=== PATIENT | male | born 1990 | race Caucasian/White ===

== ENCOUNTER 2018-04-12 10:26 | Emergency (ER) | payer BC ==
[2018-04-12] MEDS ORDERED: ONDANSETRON 4 MG/2 ML VIAL IVP ONE (11:17)
[2018-04-12] MEDS ORDERED: NS 1,000 ML IV ONE (11:17)
--- NOTE | 2018-04-12 11:17 | EDPHY ---
H & P Stated Complaint: N/D for past week Time Seen by Provider: 04/12/18 11:16 HPI/ROS: HPI: This is a 27-year-old male who presents with Chief Complaint: N/D for past week Location: Abdomen Quality: Nausea, diarrhea Duration: 1 week Signs and Symptoms: no fever,+ nausea, no vomiting, no hematemesis, no blood in stool, no abdominal bloating, + diarrhea, no back pain, no urinary symptoms, no testicular/groin pain, no indigestion, no chest pain, no shortness of breath Timing: Acute Severity: [id number] Context: Patient has a history of ulcerative colitis normally takes Asacol twice daily presents with history of nausea and loose stools over the past 1 week. He recently moved to [place] from [facility] several months ago. He reports that he stopped taking the Asacol approximately 1 month ago. Up to that point he had been taking it consistently. He denies any blood in his stool, fever, abdominal pain, abdominal cramping, urinary symptoms, back pain, hematemesis. He was only hospitalized once since being diagnosed with ulcerative colitis it and that was when he was initially diagnosed. He reports that he is a vegetarian. No recent foreign travel or antibiotic use. Patient does not have a primary care provider or Gastroenterology in the area. Modifying Factors: None Comment: ROS: see HPI Constitutional: No fever, no chills, no weight loss Eyes: No blurred vision Respiratory: No shortness of breath, no cough Cardiovascular: No chest pain, no palpitations Gastrointestinal: + nausea,no vomiting, + diarrhea, no hematemesis, no blood in stool Genitourinary: No dysuria, no blood in urine Extremities: No myalgias, no edema Neurologic: No weakness, no numbness Skin: No rashes, no petechiae Hematologic: No bruising, no bleeding MEDICAL/SURGICAL/SOCIAL HISTORY: Medical history: ulcerative colitis, hypothyroid Surgical history: Denies Social history: Family history noncontributory. CONSTITUTIONAL: Extremely polite and cooperative well-appearing young adult white male, awake and alert, no obvious distress HEENT: Atraumatic and normocephalic, PERRL, EOMI. Nares patent; no rhinorrhea; no nasal mucosal edema. Tympanic membranes clear. Oropharynx clear, no exudate and moist pink mucosa. Airway patent. No lymphadenopathy. No meningismus. Cardiovascular: Normal S1/S2, regular rate, regular rhythm, without murmur rub or gallop. PULMONARY/CHEST: Symmetrical and nontender. Clear to auscultation bilaterally. Good air movement. No accessory muscle usage. ABDOMEN: Soft, nondistended, nontender, no rebound, no guarding, no peritoneal signs, no masses or organomegaly. No CVAT. EXTREMITIES: 2/2 pulses, strength 5/5, no deformities, no clubbing, no cyanosis or edema. NEUROLOGICAL: no focal neuro deficits. GCS 15. SKIN: Warm and dry, no erythema. no rash. Good capillary refill. Source: Patient Exam Limitations: No limitations - Medical/Surgical History Hx Asthma: No Hx Chronic Respiratory Disease: No Hx Diabetes: No Hx Cardiac Disease: No Hx Renal Disease: No Hx Cirrhosis: No Hx Alcoholism: No Hx HIV/AIDS: No Hx Splenectomy or Spleen Trauma: No Other PMH: ulcerative colitis, hypothyroid - Social History Smoking Status: Never smoked Constitutional: Initial Vital Signs Temperature (C) 36.5 C 04/12/18 10:30 Heart Rate 58 L 04/12/18 10:30 Respiratory Rate 18 04/12/18 10:30 Blood Pressure 104/58 L 04/12/18 10:30 O2 Sat (%) 97 04/12/18 10:30 O2 Delivery Mode Room Air Allergies/Adverse Reactions: No Known Allergies Allergy (Unverified 04/12/18 10:29) Home Medications: Medication Instructions Recorded Asacol Hd 04/12/18 Ondansetron Odt [Zofran Odt 4 mg 4 mg PO Q4 PRN #12 tab 04/12/18 (*)] Synthroid 04/12/18 predniSONE [Deltasone] 40 mg PO DAILY 5 Days tablet 04/12/18 Medical Decision Making ED Course/Re-evaluation: Vital signs reviewed and stable upon arrival. No systemic signs. Given 1 L normal saline and IV Zofran. Laboratory studies including occult stool ordered. Abdomen is soft and nontender. Doubt surgical process. Imaging not indicated at this time. 1210: Labs reviewed. No signs of leukocytosis/anemia/platelet dysfunction/VIRAL/ elevated LFTs/electrolyte imbalance/pancreatitis. Notified by tech that guaiac stool is negative. Patient has been given gastroenterology follow-up. This patient was seen under the supervision of my secondary supervising physician. I evaluated care for this patient independently. Discussed this patient with Dr. Hayes. Differential Diagnosis: Differential diagnosis includes but is not limited to gastroenteritis, ulcerative colitis, ulcerative colitis flare, sepsis. - Data Points Laboratory Results: Laboratory Results 04/12/18 11:25 04/12/18 11:25 04/12/18 04/12/18 04/12/18 11:25 11:25 11:25 WBC 7.98 10^3/uL 10^3/uL (3.80-9.50) RBC 4.71 10^6/uL 10^6/uL (4.40-6.38) Hgb 14.8 g/dL g/dL (13.7-17.5) Hct 43.6 % % (40.0-51.0) MCV 92.6 fL fL (81.5-99.8) MCH 31.4 pg pg (27.9-34.1) MCHC 33.9 g/dL g/dL (32.4-36.7) RDW 13.5 % % (11.5-15.2) Plt Count 215 10^3/uL 10^3/uL (150-400) MPV 10.1 fL fL (8.7-11.7) Neut % (Auto) 73.8 % % (39.3-74.2) Lymph % (Auto) 12.0 % L % (15.0-45.0) Prentiss % (Auto) 8.1 % % (4.5-13.0) Eos % (Auto) 5.3 % % (0.6-7.6) Baso % (Auto) 0.5 % % (0.3-1.7) Nucleat RBC Rel Count 0.0 % % (0.0-0.2) Absolute Neuts (auto) 5.89 10^3/uL 10^3/uL (1.70-6.50) Absolute Lymphs (auto) 0.96 10^3/uL L 10^3/uL (1.00-3.00) Absolute Monos (auto) 0.65 10^3/uL 10^3/uL (0.30-0.80) Absolute Eos (auto) 0.42 10^3/uL H 10^3/uL (0.03-0.40) Absolute Basos (auto) 0.04 10^3/uL 10^3/uL (0.02-0.10) Absolute Nucleated RBC 0.00 10^3/uL 10^3/uL (0-0.01) Immature Gran % 0.3 % % (0.0-1.1) Immature Gran # 0.02 10^3/uL 10^3/uL (0.00-0.10) Sodium 142 mEq/L mEq/L (135-145) Potassium 3.9 mEq/L mEq/L (3.3-5.0) Chloride 105 mEq/L mEq/L (97-110) Carbon Dioxide 26 mEq/l mEq/l (22-31) Anion Gap 11 mEq/L mEq/L (8-16) BUN 5 mg/dL L mg/dL (7-23) Creatinine 0.7 mg/dL mg/dL (0.7-1.3) Estimated GFR > 60 Glucose 79 mg/dL mg/dL (70-100) Calcium 9.7 mg/dL mg/dL (8.5-10.4) Total Bilirubin 0.7 mg/dL mg/dL (0.1-1.4) Conjugated Bilirubin 0.2 mg/dL mg/dL (0.0-0.5) Unconjugated Bilirubin 0.5 mg/dL mg/dL (0.0-1.1) AST 35 IU/L IU/L (17-59) ALT 39 IU/L IU/L (21-72) Alkaline Phosphatase 73 IU/L IU/L (38-126) Total Protein 6.9 g/dL g/dL (6.3-8.2) Albumin 4.1 g/dL g/dL (3.5-5.0) Lipase 92 IU/L IU/L (23-300) Stool Occult Bld Scrn NEGATIVE (NEGATIVE) Medications Given: Discontinued Medications Sodium Chloride (Ns) 1,000 mls @ 0 mls/hr IV EDNOW ONE; Wide Open PRN Reason: Protocol Stop: 04/12/18 11:18 Last Admin: 04/12/18 11:42 Dose: 1,000 mls Ondansetron HCl (Zofran) 4 mg IVP EDNOW ONE Stop: 04/12/18 11:18 Last Admin: 04/12/18 11:44 Dose: Not Given Departure - Departure Disposition: Home, Routine, Self-Care Clinical Impression: Ulcerative colitis without complications Qualifiers: Ulcerative colitis location: other ulcerative colitis Qualified Code(s): K51.80 - Other ulcerative colitis without complications Condition: Good Instructions: Ulcerative Colitis (ED) Additional Instructions: Consume a minimum of 8-10 glasses of water or electrolyte fluid replacement drinks that include Gatorade, Powerade, Pedialyte. Eat a bland diet for the next 48 hours and then slowly advance as tolerated. Take Zofran 1 tab every 4 hours as needed for nausea, vomiting. Start taking Asacol twice daily as directed. Take Prednisone 40 mg daily for the next 5 days. Follow-up with Gastroenterology in the next 1-2 weeks to establish care. Return to the Emergency Room if symptoms do not resolve in the next 48-72 hours , you spike a fever > 102 F, or experience intractable abdominal pain/nausea/ vomiting. Referrals: Jcay Stanley MD [Medical Doctor] - As per Instructions Prescriptions: Ondansetron Odt [Zofran Odt 4 mg (*)] 4 mg PO Q4 PRN #12 tab PRN Reason: Nausea/Vomiting, Use 1st predniSONE [Deltasone] 40 mg PO DAILY 5 Days tablet
[2018-04-12 11:45] LABS: PLATELET COUNT 215 10^3/uL (150-400)
[2018-04-12 12:51] VITALS: BP 122/58
== END 2018-04-12 13:07 | disposition home or self-care (01) ==
DX: R11.0 Nausea (principal); R19.7 Diarrhea, unspecified; K51.918 Ulcerative colitis, unspecified with other complication; E86.9 Volume depletion, unspecified
CPT/HCPCS: J2405